=== PATIENT | female | born 1995 | race African-American/Black ===

== ENCOUNTER 2018-02-10 23:30 | Emergency (ER) | payer BC ==
[~2018-02-10] VITALS: Ht 170.2 cm; Wt 60.3 kg
[2018-02-10 23:41] VITALS: BP 107/59
--- NOTE | 2018-02-10 23:47 | NUR ---
PT TAKEN TO CHAIR B
--- NOTE | 2018-02-10 23:50 | NUR ---
PATIENT IS A 22 Y/O FEMALE WHO PRESENTS TO THE ED C/O ABD PAIN. PT STATES THAT SHE FEELS LIKE SHE IS . PT REPORTS 6/10 LOWER ABD PAIN THAT DOES NOT RADIATE. PT DENIES CP, SOB, N/V/D. PT AAOX4, RR EVEN/UNLABORED. PT AAOX4, RR EVEN/UNLABORED. PT REPOSITIONED FOR COMFORT, BED IN LOWEST POSITION. ER MD DR. VARGAS NOTIFIED. WILL CONTINUE TO MONITOR.
--- NOTE | 2018-02-10 23:52 | NUR ---
Dr. Whittington evaluating patient.
--- NOTE | 2018-02-11 00:05 | NUR ---
PT MOVED TO BED 3
[2018-02-11 00:09] LABS: APPEARANCE,URINE SL CLOUDY (CLEAR); BILIRUBIN,URINE NEGATIVE (NEGATIVE); BLOOD, URINE TRACE-I (NEGATIVE); COLOR,URINE YELLOW (YELLOW); LEUKOCYTE ESTERASE ,URINE NEGATIVE (NEGATIVE); NITRITE, URINE NEGATIVE (NEGATIVE); UGLUCOSE NEGATIVE (NEGATIVE)
[2018-02-11 00:20] LABS: RBC,URINE 0-5 (RARE) /HPF (0-5); WBC,URINE 0-5 (RARE) /HPF (0-5); YEAST,URINE Many /HPF (None Seen)
--- NOTE | 2018-02-11 00:39 | NUR ---
PT TAKEN TO ULTRASOUND
[2018-02-11 02:15] VITALS: BP 106/59
--- NOTE | 2018-02-11 02:15 | NUR ---
Patient discharged with v/s stable. Written and verbal after care instructions given and explained. Patient alert, oriented and verbalized understanding of instructions. Ambulatory with steady gait. All questions addressed prior to discharge. ID band removed. Patient advised to follow up with PMD. Rx of NAPROSYN 375MG AND DOXYCYCLINE 100MG given. Patient educated on indication of medication including possible reaction and side effects. Opportunity to ask questions provided and answered.
[2018-02-13 06:16] LABS: CHLAMYDIA TRACHOMATIS AMP DNA Negative (Negative)
== END 2018-02-11 02:15 | disposition home or self-care (01) ==
LOC: MED 23:30
DX: R10.2 Pelvic and perineal pain (principal); R51 Headache; G43.909 Migraine, unspecified, not intractable, without status migrainosus
CPT/HCPCS: 36415; 76830; 81001; 81025; 87491; 99285